=== PATIENT | female | born 1980 | race Hispanic/Latino ===

== ENCOUNTER → 2022-09-10 | Outpatient (CLI) | payer OTHER | LOC: M WHC 10:18 | PROVIDERS: ATTEND Family Medicine | DX: Z12.9 Encounter for screening for malignant neoplasm, site unspecified (principal) ==

== ENCOUNTER → 2023-04-15 | Outpatient (CLI) | payer OTHER | LOC: M RAD 12:55 | PROVIDERS: ATTEND Physician Assistant Medical | DX: J32.9 Chronic sinusitis, unspecified (principal) ==